=== PATIENT | female | born 1985 | race Caucasian/White ===

== ENCOUNTER 2016-03-21 08:07 | Emergency (ER) | payer OTHER ==
[~2016-03-21] VITALS: Ht 162.6 cm; Wt 65.0 kg
[~2016-03-21 08:07] MED LIST: ALPR.25 PO; ESCI20TA PO; LEXA20TA PO; XANA0.5T PO
[2016-03-21 08:13] VITALS: BP 142/109; PULSE 105; RESP 16; TEMP 97.9; O2SAT 98
[2016-03-21] MEDS ORDERED: LEXA20TA PO (08:16)
[2016-03-21] MEDS ORDERED: CLON.5 PO (08:16)
[2016-03-21] MEDS ORDERED: NORE1TAB43 PO (08:24)
[2016-03-21] MEDS ORDERED: LISI-515 PO (08:24)
[2016-03-21] MEDS ORDERED: FENO145T2 PO (08:24)
[2016-03-21] MEDS ORDERED: FENO1TAB39 PO (08:24)
[2016-03-21] MEDS ORDERED: SODIUM CHLOR 0.9% 1000 ML INJ 1,000 ML IV SCH (08:59)
[2016-03-21] MEDS ORDERED: SODIUM CHLOR 0.9% 1000 ML INJ 1,000 ML IV ONE (09:00)
[2016-03-21] MEDS ORDERED: SODIUM CHLORIDE 0.9% FLUSH 5 ML FLUSH IVF PRN (09:00)
[2016-03-21] MEDS ORDERED: ONDANSETRON HCL 4 MG/2 ML VIAL IVP ONE (09:00)
[2016-03-21] MEDS ORDERED: DICYCLOMINE HCL 10 MG CAP PO ONE (09:00)
[2016-03-21] MEDS ORDERED: FAMOTIDINE 20 MG/2 ML VIAL IV PUSH ONE (09:00)
[2016-03-21 09:11] VITALS: RESP 16; O2SAT 96
--- NOTE | 2016-03-21 09:13 | PD ---
HPI Chief Complaint: GI Complaint Time Seen by Provider: 08:59 Travel History International Travel<30 days: No Contact w/Intl Traveler<30days: No Traveled to known affect area: No History of Present Illness HPI Patient is a 31-year-old female who presents to emergency room with complaints of nausea vomiting and diarrhea since last night. Patient reports that last night, she had been feeling nauseous and had multiple episodes of vomiting. She reports that she woke up this morning and had continuous nausea vomiting and diarrhea. Patient reports that her 6-year-old daughter was sick with a GI bug the previous week and is currently on amoxicillin for a throat infection. Patient reports no other sick contacts at home. Patient reports no fevers or chills. Patient has not been on antibiotics at home since onset of symptoms. Patient denies chest pain or shortness of breath. Reports that she has been having increased epigastric pain from vomiting so much. Patient denies dysuria , urinary urgency or frequency this time. PFSH Past Medical History Anxiety: Yes Cardiovascular Problems: Yes (htn) High Cholesterol: Yes Diminished Hearing: No Hypertension: Yes ?: Not Past Surgical History Surgical History: No Previous Surgery Social History Alcohol Use: Yes (1 TO 2 A WEEK) Tobacco Use: No Substance Use: No Allergies-Medications (Allergen,Severity, Reaction): Coded Allergies: Codeine (Verified Allergy, Severe, Hives, 03/21/16) Reported Meds & Prescriptions Reported Meds & Active Scripts Active Reported Microgestin 1/20 (Norethindrone-Ethinyl Estradiol) 1-20 Mg-Mcg Tab 1 Tab PO DAILY Fenofibrate 145 Mg Tab 145 Mg PO DAILY Fenofibrate 120 Mg Tab 120 Mg PO DAILY Lisinopril 20 Mg Tab 20 Mg PO DAILY Klonopin (Clonazepam) 0.5 Mg Tab 0.5 Mg PO BID Lexapro (Escitalopram Oxalate) 20 Mg Tab 20 Mg PO DAILY Review of Systems General / Constitutional: No: Fever, Chills Eyes: No: Visual changes HENT: No: Headaches Cardiovascular: No: Chest Pain or Discomfort Respiratory: No: Cough, Shortness of Breath Gastrointestinal: Positive: Nausea, Vomiting, Diarrhea, No: Abdominal Pain Genitourinary: No: Dysuria Musculoskeletal: No: Pain Skin: No Rash Neurologic: No: Weakness Psychiatric: No: Depression Endocrine: No: Polydipsia Hematologic/Lymphatic: No: Easy Bruising Physical Exam Narrative GENERAL: No acute distress, nontoxic SKIN: Warm and dry. HEAD: Atraumatic. Normocephalic. EYES: Pupils equal and round. No scleral icterus. No injection or drainage. ENT: No nasal bleeding or discharge. Mucous membranes pink and moist. NECK: Trachea midline. No JVD. CARDIOVASCULAR: Regular rate and rhythm. No murmur appreciated. RESPIRATORY: No accessory muscle use. Clear to auscultation. Breath sounds equal bilaterally. GASTROINTESTINAL: Abdomen soft, mild tenderness to the epigastrium, nondistended. Hepatic and splenic margins not palpable. MUSCULOSKELETAL: No obvious deformities. No clubbing. No cyanosis. No edema. NEUROLOGICAL: Awake and alert. No obvious cranial nerve deficits. Motor grossly within normal limits. Normal speech. PSYCHIATRIC: Appropriate mood and affect; insight and judgment normal. Data Data Last Documented VS Vital Signs Date Time Temp Pulse Resp B/P Pulse Ox O2 Delivery O2 Flow Rate FiO2 03/21/16 10:47 77 16 167/100 100 Room Air 03/21/16 08:13 97.9 Orders Complete Blood Count With Diff (03/21/16 08:59) Comprehensive Metabolic Panel (03/21/16 08:59) Lipase (03/21/16 08:59) Urinalysis - C+S If Indicated (03/21/16 08:59) Iv Access Insert/Monitor (03/21/16 08:59) Oximetry (03/21/16 08:59) Ondansetron Inj (Zofran Inj) (03/21/16 09:00) Sodium Chlor 0.9% 1000 Ml Inj (Ns 1000 M (03/21/16 08:59) Sodium Chloride 0.9% Flush (Ns Flush) (03/21/16 09:00) Famotidine Inj (Pepcid Inj) (03/21/16 09:00) Dicyclomine (Bentyl) (03/21/16 09:00) Ed Urine Pregnancytest Poc (03/21/16 08:59) Sodium Chlor 0.9% 1000 Ml Inj (Ns 1000 M (03/21/16 09:00) Labs Laboratory Tests Test 03/21/16 08:40 White Blood Count 12.2 TH/MM3 Red Blood Count 4.72 MIL/MM3 Hemoglobin 14.7 GM/DL Hematocrit 42.2 % Mean Corpuscular Volume 89.4 FL Mean Corpuscular Hemoglobin 31.1 PG Mean Corpuscular Hemoglobin 34.8 % Concent Red Cell Distribution Width 11.4 % Platelet Count 295 TH/MM3 Mean Platelet Volume 8.1 FL Neutrophils (%) (Auto) 84.3 % Lymphocytes (%) (Auto) 8.5 % Monocytes (%) (Auto) 5.4 % Eosinophils (%) (Auto) 0.6 % Basophils (%) (Auto) 1.2 % Neutrophils # (Auto) 10.3 TH/MM3 Lymphocytes # (Auto) 1.0 TH/MM3 Monocytes # (Auto) 0.7 TH/MM3 Eosinophils # (Auto) 0.1 TH/MM3 Basophils # (Auto) 0.1 TH/MM3 CBC Comment DIFF FINAL Differential Comment Sodium Level 137 MEQ/L Potassium Level 4.1 MEQ/L Chloride Level 103 MEQ/L Carbon Dioxide Level 23.3 MEQ/L Anion Gap 11 MEQ/L Blood Urea Nitrogen 13 MG/DL Creatinine 0.84 MG/DL Estimat Glomerular Filtration 80 ML/MIN Rate Random Glucose 105 MG/DL Calcium Level 9.3 MG/DL Total Bilirubin 0.6 MG/DL Aspartate Amino Transf 16 U/L (AST/SGOT) Alanine Aminotransferase 24 U/L (ALT/SGPT) Alkaline Phosphatase 54 U/L Total Protein 8.6 GM/DL Albumin 4.3 GM/DL Lipase 92 U/L [facility] Medical Decision Making Medical Screen Exam Complete: Yes Emergency Medical Condition: Yes Interpretation(s) Vital Signs Date Time Temp Pulse Resp B/P Pulse Ox O2 Delivery O2 Flow Rate FiO2 03/21/16 08:13 97.9 105 16 142/109 98 Differential Diagnosis Gastritis, gastroenteritis, gastric ulcer, duodenal ulcer, electrolyte abnormality, colitis, UTI Narrative Course Patient is a 31-year-old female presents to emergency with complaints of nausea vomiting and diarrhea. Onset of symptoms was last night, reports that she has not been able to keep any fluids down this morning. Reports that her daughter was sick with similar symptoms a week ago. No other sick contacts at home. Patient with tenderness to her epigastrium, no other complaints. IV was established with patient care, CBC, LFTs, BMP ordered for further evaluation symptoms. Patient nontoxic on clinical evaluation, will give patient IV fluids as well as antinausea medications and Bentyl to help with abdominal cramping. Will re- evaluate patient after treatment. Patient reevaluated, patient feeling much better. Abdomen is soft, nontender, nondistended, no peritoneal signs. She is able to tolerate fluids at this time. I reviewed all labs and all studies with patient in detail, patient will follow up with her pcp and return to ER as needed. Signs and symptoms of when to return to ER reviewed with patient. Diagnosis Primary Impression: Nausea vomiting and diarrhea Patient Instructions: General Instructions Additional Instructions: Return to ER if symptoms progress or worsen Please follow-up with your primary care doctor Return to ER as needed Please drink plenty of fluids and stay hydrated Med/Other Pt SpecificInfo: Prescription(s) given Scripts Famotidine (Pepcid)20 Mg Tab20 Mg PO BID #20 TAB Ref 0 Prov:Marily Boudreaux DO 03/21/16 Ondansetron Odt (Zofran Odt)4 Mg Tab4 Mg SL Q6HR PRN (Nausea/Vomiting) #30 TAB Ref 0 Prov:Marily Boudreaux DO 03/21/16 Dicyclomine (Bentyl)20 Mg Tab20 Mg PO TID #20 TAB Ref 0 Prov:Marily Boudreaux DO 03/21/16 Disposition: 01 DISCHARGE HOME Condition: Stable Marily Boudreaux DO Mar 21, 2016 09:13
[2016-03-21 09:17] LABS: AUTOMATED NEUTROPHIL # 10.3 TH/MM3 (1.8-7.7); BASOPHIL # 0.1 TH/MM3 (0-0.2); BASOPHIL % 1.2 % (0.0-2.0); EOSINOPHIL # 0.1 TH/MM3 (0-0.4); EOSINOPHIL % 0.6 % (0.0-4.0); HEMATOCRIT 42.2 % (35.0-46.0); HEMO FLAGS DIFF FINAL; LYMPH % 8.5 % (9.0-44.0); MEAN CELL VOLUME 89.4 FL (80.0-100.0); MEAN CORPUSCULAR HEMOGLOBIN 31.1 PG (27.0-34.0); MEAN CORPUSCULAR HGB CONC 34.8 % (32.0-36.0); MONO % 5.4 % (0.0-8.0); NEUT % 84.3 % (16.0-70.0); PLATELET COUNT 295 TH/MM3 (150-450); RED BLOOD COUNT 4.72 MIL/MM3 (4.00-5.30); RED CELL DISTRIBUTION WIDTH 11.4 % (11.6-17.2); WHITE BLOOD COUNT 12.2 TH/MM3 (4.0-11.0)
[2016-03-21 10:17] LABS: BICARBONATE 23.3 MEQ/L (21.0-32.0)
[2016-03-21 10:20] LABS: ANION GAP 11 MEQ/L (5-15); CHLORIDE 103 MEQ/L (98-107); POTASSIUM 4.1 MEQ/L (3.5-5.1); SODIUM (NA) 137 MEQ/L (136-145)
[2016-03-21 10:21] LABS: BLOOD UREA NITROGEN 13 MG/DL (7-18)
[2016-03-21 10:24] LABS: ALT (GPT) 24 U/L (10-53); AST (GOT) 16 U/L (15-37); GLOMERULAR FILTRATION RATE 80 ML/MIN (>89)
[2016-03-21 10:25] LABS: TOTAL BILIRUBIN ADULT 0.6 MG/DL (0.2-1.0)
[2016-03-21 10:26] LABS: ALKALINE PHOSPHATASE 54 U/L (45-117)
[2016-03-21 10:47] VITALS: BP 167/100; PULSE 77; RESP 16; O2SAT 100
[2016-03-21 11:00] LABS: BLOOD, URINE SMALL (NEG); GLUCOSE,URINE NEG (NEG); KETONE, URINE NEG (NEG); NITRITE,URINE NEG (NEG); PH, URINE 5.5 (5.0-8.5)
[2016-03-21] MEDS ORDERED: ZOFR4TAB3 SL (11:06)
[2016-03-21] MEDS ORDERED: FAMO1TAB37 PO (11:06)
[2016-03-21] MEDS ORDERED: BENT20TA PO (11:06)
[2016-03-21 11:07] LABS: URINE COLOR STRAW (YELLW/STRAW)
[2016-03-21 11:08] LABS: COMMENT (UR) CULT NOT INDICATED; CULTURE IF INDICATED CULT NOT INDICATED; RBC, URINE 0-3 /hpf (0-3); SQUAMOUS EPITHELIAL CELL URINE 0-5 /hpf (0-5)
== END 2016-03-21 11:41 | disposition home or self-care (01) ==
LOC: PHED 08:07
DX: R11.2 Nausea with vomiting, unspecified (principal); F41.9 Anxiety disorder, unspecified; I10 Essential (primary) hypertension
CPT/HCPCS: 80053; 81001; 83690; 84703; 85025; 96361; 96374; 96375; 99284; J2405; J7030

== ENCOUNTER 2017-08-14 00:35 | Emergency (ER) | payer MEDICAID, OTHER ==
[~2017-08-14] VITALS: Ht 162.6 cm; Wt 69.5 kg
[~2017-08-14 00:35] MED LIST changes: -ALPR.25 PO; +BENT20TA PO; +CLON.5 PO; -ESCI20TA PO; +FAMO1TAB37 PO; +FENO145T2 PO; +FENO1TAB39 PO; +LISI-515 PO; +NORE1TAB43 PO; -XANA0.5T PO; +ZOFR4TAB3 SL
[2017-08-14 00:37] VITALS: BP 116/84; PULSE 107; RESP 18; TEMP 98; O2SAT 98
--- NOTE | 2017-08-14 03:12 | PD ---
HPI Chief Complaint: Skin Problem Time Seen by Provider: 02:48 Travel History International Travel<30 days: No Contact w/Intl Traveler<30days: No Traveled to known affect area: No History of Present Illness HPI The patient is a 32-year-old female that for 2 weeks complains of paronychia on the third digit of her left hand. 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 She is denies biting her nails. PFSH Past Medical History Anxiety: Yes Cardiovascular Problems: Yes (htn) High Cholesterol: Yes Diminished Hearing: No Hypertension: Yes Influenza Vaccination: No ?: Not LMP: 08/07/17 : 1 Para: 1 Past Surgical History Surgical History: No Previous Surgery Social History Alcohol Use: Yes (1 TO 2 A WEEK) Tobacco Use: Yes ("WHEN I DRINK") Substance Use: No Allergies-Medications (Allergen,Severity, Reaction): Coded Allergies: codeine (Unverified Allergy, Severe, Hives, 08/14/17) Reported Meds & Prescriptions Reported Meds & Active Scripts Active Reported Lisinopril 20 Mg Tab 20 Mg PO DAILY Klonopin (Clonazepam) 0.5 Mg Tab 0.5 Mg PO BID Lexapro (Escitalopram Oxalate) 20 Mg Tab 20 Mg PO DAILY Review of Systems Except as stated in HPI: all other systems reviewed are Neg Physical Exam Narrative GENERAL: Well-nourished, well-developed patient who appears somewhat intoxicated with alcohol but is cooperative in no apparent distress. Her vital signs show heart rate of 107 but are otherwise normal. SKIN: Focused skin assessment warm/dry. HEAD: Normocephalic. EYES: No scleral icterus. No injection or drainage. NECK: Supple, trachea midline. No JVD or lymphadenopathy. CARDIOVASCULAR: Regular rate and rhythm without murmurs, gallops, or rubs. RESPIRATORY: Breath sounds equal bilaterally. No accessory muscle use. GASTROINTESTINAL: Abdomen soft, non-tender, nondistended. MUSCULOSKELETAL: No cyanosis, or edema. The patient has a paronychia on the left third finger. The paronychia is extended underneath the nail and the paronychia has gone proximally approximately 5 cm up the finger. BACK: Nontender without obvious deformity. No CVA tenderness. Data Data Last Documented VS Vital Signs Date Time Temp Pulse Resp B/P (MAP) Pulse Ox O2 Delivery O2 Flow Rate FiO2 6/20/18 00:37 98.0 107 18 116/84 (92) 98 MDM Medical Decision Making Medical Screen Exam Complete: Yes Emergency Medical Condition: Yes Medical Record Reviewed: Yes Differential Diagnosis Paronychia, felon, cellulitis Narrative Course The patient has a paronychia of the left third finger. This was incised and drained and pus came out of the paronychia. There is still pus underneath the nail and the patient is told to soak in warm water 3 times daily for several days. She can put a Betadine square over the nail after she is done soaking. Procedures Procedure Narrative A digital block was done with 1% lidocaine. A #11 blade was used to incise into the paronychia cavity. Pus was recovered. The patient tolerated the procedure well. Diagnosis Primary Impression: Paronychia of finger Additional Instructions: For several days soak the finger for about 30 minutes 3 times daily. But the Betadine square over the area when you are done and put the bandage over the Betadine square. Return the emergency department if you have any problems. Med/Other Pt SpecificInfo: No Change to Meds Disposition: 01 DISCHARGE HOME Condition: Stable Socrates Gross MD Aug 14, 2017 03:12
== END 2017-08-14 03:26 | disposition home or self-care (01) ==
LOC: PHED 00:35
DX: L03.012 Cellulitis of left finger (principal); I10 Essential (primary) hypertension; Z72.0 Tobacco use
CPT/HCPCS: 26010